=== PATIENT | male | born 1985 | race Caucasian/White ===

== ENCOUNTER → 2019-09-16 14:41 | Outpatient (CLI) | payer OTHER, SELFPAY ==
--- NOTE | ~2019-09-16 | XR_ITS ---
EXAMINATION: XR_[id number]_CR EXAM DATE: 09/16/2019 15:07 INDICATION: Cervical pain. TECHNIQUE: Cervical spine frontal, lateral, lateral swimmers, and open-mouth odontoid projections. Submentovertex projection. There are no prior studies for comparison. FINDINGS: There is no evidence of acute cervical fracture. The odontoid process is intact. Pre-dens space is normal. Prevertebral soft tissue is normal. There are no soft tissue abnormalities identi fied. The vertebral bodies are aligned. Vertebral body and disc heights are well-maintained. The re is mild reversal of the normal cervical lordosis which may be positional or spasm. No more than m ild cervical arthropathy. IMPRESSION: 1. Reversal of cervical lordosis, could indicate spasm. 2. Mild cervical arthropathy. Reviewed, dictated and finalized at location A.
--- NOTE | ~2019-09-16 | XR_ITS ---
XR lumbar spine 2-3V 09/16/2019 15:07 Indication: Low back pain Procedure: 3 views lumbar spine Comparison: 06/21/2007 Findings: There has been progression of disc height loss at L4-5 and L5-S1. Vertebral body heights ar e maintained. Pedicles are intact. No acute fracture, subluxation or dislocation. Minimal levocurvatu re of the lumbar spine. Impression: 1: Progression of mild lumbar spondylosis. Reviewed, dictated and finalized at location A. Impression: 1: Progression of mild lumbar spondylosis.
--- NOTE | ~2019-09-16 | XR_ITS ---
EXAMINATION: XR thoracic spine 2V EXAM DATE: 09/16/2019 15:07 INDICATION: Thoracic pain. TECHNIQUE: Frontal and lateral projections of the thoracic spine as well as lateral swimmers projecti on of the upper thoracic spine for interpretation. Comparison is made to prior examination from 06/21. FINDINGS: There is mild mid and lower thoracic disc disease. Vertebral body heights are maintained. The vertebral bodies are aligned in the AP dimension. Paraspinal soft tissue is unremarkable. There a re no bony erosions identified. IMPRESSION: Mild thoracic spondylosis. Reviewed, dictated and finalized at location A. IMPRESSION: Mild thoracic spondylosis.
--- NOTE | ~2019-09-16 | XR_ITS ---
EXAMINATION: XR foot LT min 3V EXAM DATE: 09/16/2019 15:07 INDICATION: Left heel pain. TECHNIQUE: Left foot dorsoplantar, lateral and oblique projections obtained and reviewed. There is n o prior study for comparison. FINDINGS: Left metatarsal bones unremarkable. Small inferior calcaneal spur. No periosteal reactio n or band of sclerosis to suggest subacute stress fracture. There are no bony erosions identified. Th ere are no acute fractures or dislocations identified. There is no subcutaneous gas. The soft tissu e is unremarkable. There are no radiopaque foreign bodies. 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 IMPRESSION: Small left calcaneal inferior spur. Reviewed, dictated and finalized at location A.
== END ==
PROVIDERS: PCP Family Medicine; Visit Provider Chiropractor
DX: M79.672 Pain in left foot (principal); M54.2 Cervicalgia; M54.5 Low back pain; M77.32 Calcaneal spur, left foot; M47.894 Other spondylosis, thoracic region; M47.896 Other spondylosis, lumbar region
CPT/HCPCS: 72040; 72070; 72100; 73630

== ENCOUNTER → 2020-05-31 15:12 | Outpatient (CLI) | payer OTHER, SELFPAY ==
--- NOTE | ~2020-05-31 | XR_ITS ---
EXAMINATION: XR hand LT min 3V DATE: 05/31/2020 15:43 INDICATION: Joint pain at the left hand. TECHNIQUE: Posteroanterior, oblique and lateral views of the left hand were obtained. COMPARISON: None. FINDINGS: Alignment is normal. No fracture. Joint spaces are normal. No erosions. Soft tissues are unremarkable . IMPRESSION: 1. Normal left hand radiographs. Reviewed, dictated and finalized at location . MANAGER
== END ==
PROVIDERS: Visit Provider Physician Assistant
DX: M25.542 Pain in joints of left hand (principal)
CPT/HCPCS: 73130

== ENCOUNTER 2023-12-19 15:40 | Outpatient (CLI) | payer OTHER, SELFPAY ==
--- NOTE | ~2023-12-19 | XR_ITS ---
AP view of the pelvis Clinical history: Pain Findings: No acute fracture or dislocation is seen. Osseous alignment is anatomic. Bilateral hip and SI joint spaces are preserved. Soft tissues are unremarkable. Impression: No significant abnormality is seen. Reviewed, dictated and finalized at location M. Impression: No significant abnormality is seen.
--- NOTE | ~2023-12-19 | XR_ITS ---
Lumbosacral Spine: AP and lateral views Clinical History: Pain COMPARISON: 09/16/2019 Findings: The normal lordotic curve is maintained. No fracture or subluxation seen. There is mild to moderate degenerative disc narrowing at L4-L5. There is moderate to advanced facet arthropathy at L4- L5 and L5-S1. There is mild facet arthropathy and lumbar spine. The sacroiliac joints are normally ou tlined. Impression: [id number] degenerative spondylosis, worst at the lower lumbar spine. Reviewed, dictated and finalized at location . Impression: [id number] degenerative spondylosis, worst at the lower lumbar spine.
== END 2023-12-19 15:41 ==
PROVIDERS: PCP Family Medicine; Visit Provider Chiropractor
DX: M25.551 Pain in right hip (principal); M47.26 Other spondylosis with radiculopathy, lumbar region
CPT/HCPCS: 72100; 72170